=== PATIENT | female | born 1965 | race Caucasian/White ===

== ENCOUNTER → 2017-01-23 | Outpatient (CLI) | payer MEDICAID ==
[~2017-01-23] MED LIST: CLONAZEPAM0.5 M1 PO; DICLOFENAC 50MG50 MG PO; GABAPENTIN100 MG PO; HYDROCODONE1 TABLET PO; LISINOPRIL2.5 MG PO; NOLVADEX20 MG PO; PERCOCET 5/3251 EACH PO; SERTRALINE 100100 MG PO; VENTOLIN H0.09 MG/AC IH
--- NOTE | 2017-01-23 15:35 | RADIOLOGY REPORT PS360 ---
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 The lungs are clear without infiltrates, suspicious nodules, or pleural effusions. No acute bony abnormalities. Old granulomatous disease IMPRESSION: No change with no acute finding
--- NOTE | 2017-01-24 17:42 | RADIOLOGY REPORT PS360 ---
PROCEDURE: 2-D M-mode and color Doppler study INDICATIONS FOR THE TEST: Chest pain+ COPD Heart Murmur Tobacco Smoking Palpitations Fatigue Syncope Edema Hypertension+Diabetes Mellitus Rheumatic Fever SOB+DREW Obesity Hyperlipidemia Family History HD Additional History hx of hypertrophic cardiomyopathy, rt mastectomy, numbness left arm PATIENT INFORMATION HEIGHT: 67 WEIGHT: 170 GENDER: Female B/P:126/81 2-D/M-MODE INTERPRETATION: 2-D MEASUREMENTS OBSERVED VALUES IN CMS Right Ventricular Dimension (RVDd) 1.4 Interventricular Septum (Thickness)(IVsd) 0.7 Left Ventricular Internal Dimensions(LVIDd) 5.2 Left Ventricular Posterior Wall (Thickness)(LVPWd) 0.7 Aortic Root 2.6 Aortic Cusp Separation 2.1 Left Atrial Dimensions (LAD) 3.0 2D 1. Left atrium is normal size, left ventricle is normal size, there is no concentric left ventricular hypertrophy, asymmetrical septal hypertrophy seen. Visually estimated ejection fraction 50-55% with no obvious regional wall motion abnormality. 2. The right atrium and right ventricle are normal size and contractility. 3. The aortic valve is minimally thickened and fibrosed. 4. The mitral and tricuspid valvular grossly normal. 5. The pulmonic valve is poorly visualized. 6. No significant pericardial effusion noted. DOPPLER INTERROGATION: Doppler interrogation of the aortic, mitral and tricuspid valvular presence of mild mitral and tricuspid regurgitation, tricuspid and jet velocity is insufficient for calculation of the right ventricular systolic pressure, diastolic parameters are inconclusive. CONCLUSION: 1. Normal left ventricular size, preserved left ventricular systolic function, visually estimated ejection fraction of 50-55% with no obvious regional wall motion abnormality, there is no obvious echocardiographic features to suggest hypertrophy cardiomyopathy. 2. Mild mitral and tricuspid regurgitation. 3. No significant pericardial effusion noted.
== END ==
LOC: RT 01-15 15:15
DX: R07.9 Chest pain, unspecified (principal); R06.02 Shortness of breath; I42.9 Cardiomyopathy, unspecified